=== PATIENT | female | born 1990 | race Caucasian/White ===

== ENCOUNTER 2017-06-18 10:45 | Day surgery (SDC) | payer BC ==
[2017-06-18] VITALS (11 sets, daily range): BP systolic 113–153; BP diastolic 73–82; PULSE 76–98; RESP 14–18; Ht 165.1 cm; Wt 59.0 kg
[~2017-06-18] VITALS: Ht 165.1 cm; Wt 59.0 kg
[~2017-06-18 10:45] MED LIST: SUCCINYLCHOLINE CHLORIDE 100 MG/5 ML SYG IV ONE
--- NOTE | 2017-06-18 12:20 | HPN ---
Date/Time of Note Date/Time of Note DATE: 06/18/17 TIME: 12:20 Interval H&P Admission Note Pt. seen H&P reviewed: No system changes OSMAN YU MD Jun 18, 2017 12:20
[2017-06-18] MEDS ORDERED: NEOMYC/POLYMYX/BACIT 30 GM OINT ONE (12:27)
[2017-06-18] MEDS ORDERED: ROCURONIUM 50 MG INJ ONE (12:40)
[2017-06-18] MEDS ORDERED: NEOSTIGMINE 3 MG/3 ML SYRINGE ONE (12:40)
[2017-06-18] MEDS ORDERED: GLYCOPYRROLATE 0.4 MG INJ ONE (12:40)
[2017-06-18] MEDS ORDERED: FENTAnyl 50 MCG/ML VIAL ONE ×3 (12:40→13:51)
[2017-06-18] MEDS ORDERED: PROPOFOL 20 ML ONE (12:40)
[2017-06-18] MEDS ORDERED: CEFAZOLIN 1 GM INJ ONE (12:40)
[2017-06-18] MEDS ORDERED: MIDAZOLAM 1 MG/ML 2 ML INJ ONE (12:40)
[2017-06-18] MEDS ORDERED: ONDANSETRON 4 MG INJ ONE (12:41)
[2017-06-18] MEDS ORDERED: DEXAMETHASONE 4 MG/ML 1 ML INJ ONE (12:41)
[2017-06-18] MEDS ORDERED: MEPERIDINE 25 MG INJ IV PRN (14:00)
[2017-06-18] MEDS ORDERED: EPHEDrine SULFATE 50 MG/5 ML SYG IV PRN (14:00)
[2017-06-18] MEDS ORDERED: HYDROmorphONE (0.2 MG/ML) 10ML SYG IV PRN ×3 (14:00)
[2017-06-18] MEDS ORDERED: MIDAZOLAM 1 MG/ML 2 ML INJ IV PRN (14:00)
[2017-06-18] MEDS ORDERED: hydrALAzine 20 MG INJ IV PRN (14:00)
[2017-06-18] MEDS ORDERED: TRIMETHOBENZAMIDE 100 MG/ML VIAL IM PRN (14:00)
[2017-06-18] MEDS ORDERED: FENTAnyl 50 MCG/ML VIAL IV PRN ×2 (14:00)
[2017-06-18] MEDS ORDERED: DIPHENHYDRAMINE 50 MG INJ IV PRN (14:00)
[2017-06-18] MEDS ORDERED: ONDANSETRON 4 MG INJ IV PRN (14:00)
[2017-06-18] MEDS ORDERED: OXYCODONE/ACETAMINOPHEN (5/325) TAB PO PRN ×3 (14:00→15:00)
[2017-06-18] MEDS ORDERED: ALBUTEROL 0.083% (NEB) 2.5 MG/3 ML AMP HHN PRN (14:00)
[2017-06-18] MEDS ORDERED: LABETALOL HCL 20MG INJ IV PRN (14:00)
[2017-06-18] MEDS ORDERED: IPRATROPIUM (NEB) 0.5 MG/2.5 ML AMP HHN PRN (14:00)
--- NOTE | 2017-06-18 15:09 | OPR ---
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 Postoperative Diagnosis Same Operation Performed Right partial parotidectomy, resection of deep lobe pleomorphic adenoma. Surgeon: OSMAN YU MD Garage Supervisor: LOC VALVERDE Anesthesia Type: general Estimated Blood Loss: 10 - 50 ml's Transfusion Required: no Specimens Right parotid superficial and partial deep lobe. Grafts/Implants: none Complications: no Pt Condition Post Procedure: stable Disposition: PACU Indications Growing right parotid tumor. Operative\Procedure Findings Deep low parotid tumor splaying the main divisions of the facial nerve. Procedure Description Description of procedure: The patient was identified in the holding area with fiance. We had a discussion to confirm understanding of indications, risks, benefits, alternatives and postoperative care associated with the operation. Informed consent was signed. The patient was taken the operating room and placed supine on the operating table. General endotracheal anesthesia was achieved without difficulty. Facial nerve monitoring was performed throughout the duration of the case. The right face and neck were prepped and draped in normal sterile fashion. A 15 blade was used to make a modified Navi incision in a preexisting cervical crease. Sub SMAS flaps were elevated circumferentially. The parotid was inspected and the mass palpated. The posterior branch of the greater auricular nerve was identified and dissected along its course. The anterior division had to be sacrificed. The parotid gland was dissected off of the cartilaginous external auditory canal and off of the sternocleidomastoid muscle. Blunt dissection was carried down to the tympanomastoid suture and the tragal pointer. The same technique was used to identify the main trunk of the facial nerve. This was carefully dissected laterally and distally to identify the inferior and superior divisions. At this point, it was discovered that the tumor was in fact a deep lobe tumor that had splayed the facial nerve branches away from each other. Meticulous facial nerve dissection commenced. All branches were identified. This included a communicating branch between the knuckle and zygomatic divisions. With all branches carefully dissected free, the overlying parotid tissue was kept intact with the underlying deep lobe parotid tumor as much as possible. Careful dissection of the deep lobe tumor was made around the facial nerve branches and it was delivered from the deep lobe in between the main upper and lower divisions. A 4-0 Vicryl was used to reapproximate the layer. 6-0 fast-absorbing was used to reapproximate the skin. The patient tolerated the procedure well and was extubated, taken to PACU in stable condition after placement of a compression dressing. Complications: None. OSMAN YU MD Jun 18, 2017 15:09
[2017-06-18] MEDS: FENTAnyl 50 MCG/ML VIAL IV PRN ×2 (15:22→15:39)
[2017-06-18 16:58] LABS: HEPATITIS B CORE ANTIBODY NEGATIVE (NEGATIVE)
== END 2017-06-18 17:25 | disposition home or self-care (01) ==
LOC: SDS 10:45
PROVIDERS: ATTEND Otolaryngology
DX: D11.0 Benign neoplasm of parotid gland (principal)
CPT/HCPCS: 42415; 84703; 86703; 86704; 86706; 86803; 87340; J0690; J1100; J2175; J2250; J2405; J3010; J7999; J2710